=== PATIENT | female | born 1990 | race Caucasian/White ===

== ENCOUNTER → 2018-07-31 | Outpatient (CLI) | payer SELFPAY ==
[~2018-07-31] MED LIST: ALB0.5 INH; ASCO500C9 PO; ATOM40CA7 PO; BUP75 PO; CIP500 PO; CONCERTA PO; DAR100 PO; DON PO; DOXY-181 PO; FIBER; FLUT16SP20 NS; IMITREX; LACT1CAP64 PO; LORA-1456 PO; METH36TA11 PO; MON10 PO; MULT VITAMIN; MULT1CAP59 PO; NORG1TAB6 PO; OND4 PO; PAN20 PO; PER PO; PREN1TAB44; SERT-177 PO; SULF-198 PO; SUMA100T32 PO; VENL75CA4 PO; VITA-182 PO; [UNRECOGNIZED DRUG - CODE]; birth control
== END ==
LOC: LAB 08:39
PROVIDERS: ATTEND Obstetrics & Gynecology
DX: Z02.9 Encounter for administrative examinations, unspecified (principal)

== ENCOUNTER → 2018-08-03 | Outpatient (CLI) | payer SELFPAY ==
[~2018-08-03] MED LIST changes: +DIPH0.5S2 IM; +RHO(150015 IM
== END ==
LOC: LAB 08:50
PROVIDERS: ATTEND Obstetrics & Gynecology
DX: Z13.0 Encounter for screening for diseases of the blood and blood-forming organs and certain disorders involving the immune mechanism (principal); Z13.1 Encounter for screening for diabetes mellitus
CPT/HCPCS: 36415; 82950

== ENCOUNTER → 2018-09-22 | Outpatient (CLI) | payer MEDICAID | LOC: LAB 08:33 | PROVIDERS: ATTEND Advanced Practice Midwife | DX: Z36.85 Encounter for antenatal screening for Streptococcus B (principal) | CPT/HCPCS: 87077; 87081; 87186 ==

== ENCOUNTER 2018-10-18 12:55 | Inpatient (IN) | payer MEDICAID ==
--- NOTE | 2018-10-18 13:01 | History & Physical ---
History of Present Illness Age of Patient: 28 : 1 Para or TPAL: 0 EDC per LMP: Oct 22, 2018 Estimated Gestational Age: 39.3 Chief Complaint Patient presents to clinic today with complaints of contractions starting last night about 11 PM. She reports that she is feeling lower back pain that then wraps around the front and it feels "weird". Reports her pain about 3 out of 10. He has been having light vaginal bleeding ever since her cervix was checked 2 weeks ago but denies clots and heavy bleeding. She reports positive movement and no leaking of fluid. Started to feel an increase in pelvic pressure last night. She denies headaches, vision changes, right upper quadrant pain. She does report increased swelling in her lateral lower extremities. History Patient's Blood Type: A Negative Rubella Status: Immune Group B Strep Screen: Positive Allergies: Coded Allergies: cefaclor (Verified Allergy, Severe, ANAPHYLAXIS, 10/16/16) Penicillins (Verified Allergy, Intermediate, HIVES, 10/16/16) Uncoded Allergies: ENVIRONMENTAL (Allergy, Mild, 02/01/07) VINEGAR (Allergy, Mild, NAUSEA, 02/01/07) Social History: She denies smoking, alcohol, and illicit drug use including marijuana Family History: FH: type 2 diabetes Maternal Grandmother Med Rec Home Meds Reported Medications Vit No.124/Iron/FA ( Vitamin Tablet) 1 Each Tablet 07/31/18 Review of Systems Constitutional: No Fever Neurological: No Syncope Eyes: No Vision Change Cardiovascular: No Chest Pain Respiratory: No Shortness of Breath Gastrointestinal: No Nausea, No Vomiting, No Diarrhea; Abdominal Pain (pelvic pain and pressure, lower back pain with contractions) Genitourinary: No Dysuria Musculoskeletal: Pain Psychiatric: No Depression, No Anxiety Exam General Exam General Apperance: Alert/Awake/No Acute Distress Neuro: No Gross deficits Eyes: Normal Extraocular Movement & Vison ENT: Normal Cardiovascular: Regular Rate and Rhythm Respiratory: No Respiratory Distress Abdomen: Gravid - Non-Tender, RUQ Non-Tender : Normal Musculoskeletal: No Weakness/Pain Extremities: No Cyanosis,Clubbing or Edema Integumentary: Skin Intact without Lesions or Rash Psychological: Alert & Oriented X3, Appropriate Mood & Affect Vaginal Discharge/Fluid?: Bloody Show Cervical Dialation: 5 Cervical Effacement (%): 90 Cervical Consistency: Soft Cervical Position: Mid Station: -1 Presentation: Vertex Uterine Contractions(Q min): 3 Uterine Contraction Strength: Moderate UC Resting Tone: Soft Fetus Feeling Movement?: Yes Estimated Weight(grams): 3700 Heart Tones: 135 Heart Tone Variabilty: Moderate FHT Accelerations: 15X15 FHT Decelerations: None FHT Category: I Medical Decision Making Data Points Result Diagram: 10/18/18 1333 Assessment and Plan Hospital Day: 1 OFFICE WORKER Plan: Routine Labor Care Problems: (1) Uterine contractions Status: Acute Assessment & Plan: SC is a 28 y.o. at 39w3d wks with an Estimated Date of Delivery: 10/22/18 dated by second trimester US Labor state: Early labor, Admit to L&D for and labor evaluation. NST. Start IV and draw labs. Start GBS prophylaxis with clindamycin 900mg Q 8 now. Reviewed PNC. First OB visit at [facility] @ 25 weeks and then with IMG. Encourage ambulation and upright positions for descent. R/B/A of AROM versus expectant management. Pt desires expectant management at this time. Will consider AROM in a few hours well-being: Category I FHT: intermittent monitoring if reactive NST Maternal well-being: VSS, upon admission BP mild range, but then normotensive, membranes presumed intact PNL: GBS Pos, Type/Rh A-, rubella immune Pain Management: Plans for an unmediated Feed: Breast PPBCM: unsure c/b: * Late to PNC @ 25 weeks. * Rh negative- Rhoploac at 28 weeks and will need PP * Hx PTSD, abuse, anxiety and depression: stable but will continue to monitor * Heavy ETOH use in early - denies currently Anticipate labor progression, re-evaluate in 2-3 hours or prn (2) Vaginal bleeding in Status: Acute Assessment & Plan: Bloody show after cervical check and then subsequent vaginal bleeding. Pt denies significant abdominal pain and contractions are mild. Reactive NST. Continue to monitor (3) 39 weeks gestation of Status: Acute SHAJI GA CNM Oct 18, 2018 13:01
[2018-10-18] MEDS ORDERED: LR(*) 1000 ML BAG 1,000 ML IV SCH (13:13)
[2018-10-18] MEDS ORDERED: FAMOTIDINE(*) 20MG/50ML PREMIX 50 ML IVPB PRN (13:13)
[2018-10-18] MEDS ORDERED: OXYTOCIN 30 UNIT/NS 500 ML 500 ML IV PRN (13:13)
[2018-10-18] MEDS ORDERED: LIDOCAINE 1% LOCAL 300 MG/30ML INJ PRN (13:15)
[2018-10-18] MEDS ORDERED: LIDOCAINE/SOD BICARB 8.4% SYR SC PRN (13:15)
[2018-10-18] MEDS ORDERED: fentaNYL CITR 100 MCG/2 ML AMP IVP PRN (13:15)
[2018-10-18] MEDS ORDERED: METOCLOPRAMIDE 10 MG/2 ML SDV IVP PRN (13:15)
[2018-10-18] MEDS ORDERED: CLINDAMYCIN(*) 900 MG/NS 50 ML 50 ML IVPB ONE (13:35)
[2018-10-18 13:49] LABS: PLATELET COUNT, AUTOMATED 260 K/uL (150-450)
--- NOTE | 2018-10-18 16:00 | NUR ---
No HIV result noted when chart review done. Had declined HIV testing at first visit. CNM informed that HIV testing does not appear to have been done.
--- NOTE | 2018-10-18 16:32 | Labor Progress Note ---
Labor Subjective Progress Notes Subjective Pt is reporting contraction pain 3/10, and able to talk through them. She is feeling rectal pressure with some contractions as well. Mother and friend at bedside providing support as her is in [place] in the hospital. Feeling Movement?: Yes Vaginal Discharge/Fluid: Bloody Show, Bloody Fluid, Moderate Amount Labor Pain: Mild Neurological: No Headache Eyes: No Visual Disturbances Labor Objective Vaginal Discharge/Fluid?: Bloody Show, Bloody Fluid Cervical Dialation: 6 Cervical Effacement (%): 90 Cervical Consistency: Soft Cervical Position: Mid Station: 0 Presentation: Vertex Uterine Contractions(Q min): 3 Uterine Contraction Strength: Moderate UC Resting Tone: Soft Fetus Estimated Weight(grams): 3700 Heart Tones: 135 Heart Tone Variabilty: Moderate FHT Accelerations: Present, 15X15 FHT Decelerations: None FHT Category: I General Exam General Appearance: Alert/Awake/No Acute Distress ENT: Normal Neck: No Masses Cardiovascular: Normal Rhythm & Peripheral Pulses Respiratory: No Respiratory Distress Abdomen: Gravid - Non-Tender, RUQ Non-Tender : Normal Musculoskeletal: No Weakness/Pain Integumentary: Skin Intact without Lesions or Rash Psychological: Alert & Oriented X3, Appropriate Mood & Affect Other Result Diagram: 10/18/18 1333 Assessment and Plan Problems: (1) Uterine contractions Status: Acute Assessment & Plan: SC is a 28 y.o. at 39w3d wks with an Estimated Date of Delivery: 10/22/18 dated by second trimester US Labor state: Active labor, no cervical change in 2 hours so revisited AROM. Patient desires AROM now to help progress labor. Continue GBS prophylaxis with clindamycin 900mg Q 8. Encourage ambulation and upright positions to facilitate descent. well-being: Category I FHT: intermittent monitoring if patient desires Maternal well-being: VSS, normotensive and afebrile, AROM at 16:10 for clear dark bloody fluid PNL: GBS Pos, Type/Rh A-, rubella immune Pain Management: Coping well and plans for an unmedicated Feed: Breast PPBCM: unsure c/b: * Late to PNC @ 25 weeks. * Rh negative- Rhoploac at 28 weeks and will need PP * Hx PTSD, abuse, anxiety and depression: stable but will continue to monitor * Heavy ETOH use in early - denies currently Anticipate labor progression, re-evaluate in 2-3 hours or prn (2) Vaginal bleeding in Status: Acute Assessment & Plan: Bloody show after cervical check and then subsequent vaginal bleeding. AROM 1610 for clear dark bloody fluid.Pt denies significant abdominal pain and contractions are mild. Continues to have Reactive NST. Continue to closely monitor. (3) 39 weeks gestation of Status: Acute SHAJI GA CNM Oct 18, 2018 16:32
[2018-10-18] MEDS ORDERED: ACETAMINOPHEN 500 MG TAB PO PRN (16:35)
[2018-10-18] MEDS ORDERED: ONDANSETRON 4 MG/2 ML VIAL IVP PRN (16:35)
[2018-10-18] MEDS ORDERED: FAMOTIDINE 20 MG TAB PO ONE (16:35)
[2018-10-18] MEDS ORDERED: CALCIUM CARBONATE 500 MG CHEW PO PRN (16:35)
[2018-10-18] MEDS ORDERED: BUPIVACAINE 0.5% INJ 30ML VIAL EPI PRN (17:00)
[2018-10-18] MEDS ORDERED: BUPIVACAINE 0.25% MPF INJ EPI PRN (17:00)
[2018-10-18] MEDS ORDERED: LIDO/EPI 2% MPF 1:200,000 20ML EPI PRN (17:00)
[2018-10-18] MEDS ORDERED: FENTANYL/ROPIVACAINE 100 ML BAG EPI PRN (17:00)
[2018-10-18] MEDS ORDERED: LIDOCAINE/PF 2% 200MG/10ML AMP 200 MG/10 ML AMPUL EPI PRN (17:00)
[2018-10-18] MEDS ORDERED: fentaNYL CITR 100 MCG/2 ML AMP IT PRN (17:00)
--- NOTE | 2018-10-18 20:19 | OB Delivery Note ---
Delivery Note Vaginal Delivery Type: Spont. Vaginal Delivery Delivery Date: Oct 18, 2018 Delivery Time: 19:13 Estimated Gestational Age(wks): 39.3 Infant Sex: Male [place] Apgars: 1 Minute, 5 Minute Repair Needed: Laceration, Vaginal, Labial, 2nd Degree Estimated Blood Loss: 500 Delivery Complications: Laceration Notes: Pt was admitted to the family care unit on 10/18/18 at 1255 in early labor from clinic. Cervical exam on admission was 4/80/-2. She had AROM on 10/18/18 at 1610 for clear bloody fluid. Pt was GBS positive and received adequate treatment. FHR was CAT I primarily throughout first stage. Pt utilized none primarily for pain management. Pt was completely dilated on 10/18/18 at 1833 and pt began pushing spontaneously at that time with excellent maternal effort. At 1913 pt had a NSVB of live male with APGARS 8/9 with weight not done at time of this note. The head delivered spontaneously in the direct RAMIN position with no nuchal cord. The anterior shoulder was delivered a traumatically and the posterior shoulder followed. Body delivered easily. Face was wiped with nose and bulb suction and then placed on the maternal abdomen. The infant was dried and stimulated and noted to have a spontaneous cry and spontaneous movement of all 4 extremities. Cord was clamped X 2 by JESSICAM after 2 minutes and cut by patient's sister in law. Mother was in lithotomy position. At 1935 the placenta and membranes delivered spontaneous and intact with a 3 vessel cord after gentle downward traction, fundal massage and maternal push. 30 units of Pitocin was placed in 500cc IV to firm the uterus and started immediately after placenta delivery. Upon inspection of the perineum it was found to be intact with a second degree vaginal laceration noted as well as a left labial which were repaired in the usual fashion using 3.0 Vicryl rapid under 1% lidocaine. Anterior vaginal swelling was also noted. Hemostasis observed. EBL 500 with fundus firm and moderate bleeding. Methergine was given IM and I+O cath for minimal urine. Mom and baby were left in stable condition and FF was firm with minimal bleeding when I left the room. initiated. "I personally examined the patient and there are no unintended foreign objects in the vagina, and all sponge, lap and needle counts were correct." Qiana Brasher CNM was present throughout the entire delivery with as my OB backup. Supervisor Prep in Attendence: QIANA Gill CNM Oct 18, 2018 20:19
[2018-10-18] MEDS ORDERED: BENZOCAINE 20% 60 ML BTL TP PRN (20:20)
[2018-10-18] MEDS ORDERED: GLYCERIN/WITCH HAZEL LEAF 1 PK TP PRN (20:20)
[2018-10-18] MEDS ORDERED: HYDROCORTISONE 2.5% CR 30GM TB PR PRN (20:20)
[2018-10-18] MEDS ORDERED: MAGNESIUM HYDROXIDE* 30ML UDCP PO PRN (20:20)
[2018-10-18] MEDS: IBUPROFEN 800 MG TAB PO SCH (21:21)
[2018-10-18] MEDS: LANOLIN OINT 7 GM TUBE TP PRN (21:21)
[2018-10-18] MEDS: DOCUSATE CALCIUM 240 MG CAP PO SCH (21:21)
[2018-10-18] MEDS ORDERED: LIDOCAINE 1% LOCAL 300 MG/30ML 30 ML ONE (21:39)
[2018-10-18 23:45] VITALS: BP 117/71
[2018-10-19] MEDS: APAP/HYDROCODONE 325/5 TAB PO PRN ×3 (01:59→17:26)
[2018-10-19 04:51] VITALS: BP 112/68
[2018-10-19] MEDS: IBUPROFEN 800 MG TAB PO SCH ×3 (05:25→22:00)
[2018-10-19 08:00] VITALS: BP 118/64
--- NOTE | 2018-10-19 08:06 | OB/GYN Progress Note ---
OB Subjective Progress Notes Subjective PT reports feeling well. Pain well controlled. Lochia decreasing. Pt is able to void spontaneously. OB Objective Physical Exam Vital Signs Date Time Temp Pulse Resp B/P (MAP) Pulse Ox O2 Delivery O2 Flow Rate FiO2 10/19/18 04:51 96.5 78 16 112/68 (83) Room Air General Appearance: Alert/Awake/No Acute Distress Neurological: No Gross deficits Eyes: Normal Extraocular Movement & Vison ENT: Normal Neck: No Masses Cardiovascular: Normal Rhythm & Peripheral Pulses Respiratory: No Respiratory Distress : Normal Musculoskeletal: No Weakness/Pain Extremities: No Cyanosis,Clubbing or Edema Integumentary: Skin Intact without Lesions or Rash Psychological: Alert & Oriented X3, Appropriate Mood & Affect Result Diagram: 10/19/18 0602 Assessment and Plan INVESTMENT ACCOUNTANT Plan: Routine Post- Care (anticipate d/c to home tomorrow. Will watch patient closely for depression/blues due to social circumstances with her being in the hospital with diabetic complications. ) Problems: (1) Uterine contractions Status: Resolved (2) Vaginal bleeding in Status: Resolved (3) 39 weeks gestation of Status: Resolved RUFINO NORWOOD DO Oct 19, 2018 08:06
[2018-10-19 09:40] VITALS: BP 111/58
[2018-10-19] MEDS: DOCUSATE CALCIUM 240 MG CAP PO SCH ×2 (09:44→22:00)
[2018-10-19 11:24] VITALS: BP 115/57
[2018-10-19 15:45] VITALS: BP 114/70
[2018-10-19 19:30] VITALS: BP 146/61
[2018-10-20] MEDS ORDERED: APAP/HYDROCODONE 325/5 TAB PO SCH
[2018-10-20 00:39] VITALS: BP 106/50
[2018-10-20 04:10] VITALS: BP 92/55
[2018-10-20] MEDS: IBUPROFEN 800 MG TAB PO SCH ×3 (06:13→21:00)
[2018-10-20] MEDS: DOCUSATE CALCIUM 240 MG CAP PO SCH ×2 (08:20→21:00)
[2018-10-20] MEDS: APAP/HYDROCODONE 325/5 TAB PO PRN ×2 (08:21→14:21)
[2018-10-20 09:30] VITALS: BP 98/55
[2018-10-20 13:30] VITALS: BP 118/69
--- NOTE | 2018-10-20 14:02 | OB/GYN Discharge Summary ---
Discharge Summary Reason for Hosp/Final Diag: (1) Uterine contractions Status: Resolved (2) Vaginal bleeding in Status: Resolved (3) 39 weeks gestation of Status: Resolved (4) care and examination Onset Date: ~ 10/18/2018 Hospital Course & Plan: Plan: 1. DC to home with instructions to follow up at 2 and 6 weeks, instructed on pelvic rest x 6 weeks, may consider IUD or other LARC for BC, also may consider BTL. 2. Will send home with Rx for Tramadol for pain x days. 3. Will resume vitamins, 4. encouraged to follow up if any problems with feeding or emotions, warning signs reviewed. Lates Vital Signs Vital Signs Date Time Temp Pulse Resp B/P (MAP) Pulse Ox O2 Delivery O2 Flow Rate FiO2 10/20/18 13:30 98.2 16 118/69 (85) 95 Room Air 10/20/18 09:30 68 Weight (Pounds): 257 Result Diagram: 10/19/18 0602 Condition: Improved Discharge: Self Snf Meds Reported Medications Vit No.124/Iron/FA ( Vitamin Tablet) 1 Each Tablet 07/31/18 Follow up with: [facility] [phone] Follow up in: 6 wks PP or PO, 2 wks PO Discharge Diet: As Tolerates Discharge Activity: Pelvic Rest (x 6 weeks. ) KIZZY LAKE CNM Oct 20, 2018 14:02
--- NOTE | 2018-10-20 14:11 | OB/GYN Progress Note ---
OB Subjective Progress Notes GI: POS Flatus : Voiding Well, Scant Pain: Moderate, Tolerating PO Pain Meds Eyes: No Visual Disturbances OB Objective Physical Exam Vital Signs Date Time Temp Pulse Resp B/P (MAP) Pulse Ox O2 Delivery O2 Flow Rate FiO2 10/20/18 13:30 98.2 16 118/69 (85) 95 Room Air 10/20/18 09:30 68 Intake and Output 10/20/18 07:03 Intake Total 700 ml Output Total 150 ml Balance 550 ml Intake Oral 700 ml Output Urine Total 150 ml # Voids 1 General Appearance: Alert/Awake/No Acute Distress Neurological: No Gross deficits Eyes: Normal Extraocular Movement & Vison ENT: Normal Neck: No Masses Cardiovascular: Normal Rhythm & Peripheral Pulses Respiratory: No Respiratory Distress Abdomen: Soft, Non-Tender, Non-Distended, Fundus Firm, Non-Tender Incision: Intact (well approximated perineal repair.) : Normal, No CVA Tenderness Musculoskeletal: No Weakness/Pain Extremities: No Cyanosis,Clubbing or Edema Integumentary: Skin Intact without Lesions or Rash Psychological: Alert & Oriented X3, Appropriate Mood & Affect Result Diagram: 10/19/18 0602 Assessment and Plan Problems: (1) Uterine contractions Status: Resolved (2) Vaginal bleeding in Status: Resolved (3) 39 weeks gestation of Status: Resolved (4) care and examination Onset Date: ~ 10/18/2018 Assessment & Plan: A/P Normal Involution- will dc to home with routine pp instructions for follow up in 2 and 6 weeks; reviewed warning signs of problems Rh negative-received Rhogam today Lactating - encouraged to follow up for help with if milk is not well in between days 3-5; public health to follow up, met with PHN today. PPBCM- may consider BTL or LARC method will follow up at visit Pain-will rx Toradol for pain for 2 days without refill, discussed tylenol and IBU as well. KIZZY LAKE CNM Oct 20, 2018 14:10
[2018-10-20] MEDS ORDERED: TRAM-420 PO (14:22)
[2018-10-20] MEDS ORDERED: ACET/HYDROC 5/325MG TH ER ONLY 2 TAB/BOTTLE PO PRN (19:30)
[2018-10-20] MEDS ORDERED: LOR5/325 PO (19:50)
[2018-10-20 19:59] VITALS: BP 120/56
[2018-10-20] MEDS: LANOLIN OINT 7 GM TUBE TP PRN (20:29)
== END 2018-10-20 21:00 | disposition home or self-care (01) | DRG 806 ==
LOC: OB 12:55
PROVIDERS: ADMIT Obstetrics & Gynecology; ATTEND Obstetrics & Gynecology
PROC: 10E0XZZ Delivery of Products of Conception, External Approach (ICD-10-PCS; principal; 2018-10-18)
PROC: 0KQM0ZZ Repair Perineum Muscle, Open Approach (ICD-10-PCS; 2018-10-18)
PROC: 10907ZC Drainage of Amniotic Fluid, Therapeutic from Products of Conception, Via Natural or Artificial Opening (ICD-10-PCS; 2018-10-18)
PROC: 3E0334Z Introduction of Serum, Toxoid and Vaccine into Peripheral Vein, Percutaneous Approach (ICD-10-PCS; 2018-10-18)
DX: O99.824 Streptococcus B carrier state complicating childbirth (principal); O36.0130 Maternal care for anti-D [Rh] antibodies, third trimester, not applicable or unspecified; Z37.0 Single live birth; O70.1 Second degree perineal laceration during delivery; Z3A.39 39 weeks gestation of pregnancy; Z88.0 Allergy status to penicillin; Z88.8 Allergy status to other drugs, medicaments and biological substances
CPT/HCPCS: 36415; 85025; 85027; 85461; 86850; 86870; 86900; 86901; J2001; J2590; J2791; J3490; J7120